=== PATIENT | female | born 1985 ===

== ENCOUNTER 2017-10-28 11:57 | Emergency (ER) | payer OTHER ==
[2017-10-28 12:37] VITALS: BMI 30.4
[2017-10-28 12:43] VITALS: RESP 20
[2017-10-28 13:15] LABS: HCG,QUALITATIVE URINE NEGATIVE (NEGATIVE)
[2017-10-28 13:24] LABS: SQUAMOUS EPITHIAL 5 /hpf (0-5); URINE BACTERIA RARE (<OCC); URINE BILIRUBIN NEGATIVE (NEGATIVE); URINE BLOOD NEGATIVE (NEGATIVE); URINE CLARITY Hazy (Clear); URINE COLOR Yellow (YELLOW); URINE GLUCOSE (UA) NORMAL (Normal); URINE LEUKOCYTE ESTERASE 2+ Leu/uL (Negative); URINE PROTEIN NEGATIVE (NEGATIVE); URINE UROBILINOGEN NORMAL mg/dL (0.2-1.0)
--- NOTE | 2017-10-28 13:38 | C.PDOC ---
History Of Present Illness 32yo female with history of left ovarian cyst, presents to the ED for evaluation of left lower abdominal pain. Patient states she feels her abdomen is inflamed as well. Patient states she has been following up with the OBGYN in the hospital clinic who instructed her she does not need surgery. Patient presents today due to increased pain. She states she has been having some burning upon urination and abnormal vaginal discharge as well. She also has a secondary complaint of headache and cough as well. Patient denies any nausea, vomiting, diarrhea, fever, chills, hematuria. She has no other medical complaints. Time Seen by Provider: 10/28/17 13:02 Chief Complaint (Nursing): Abdominal Pain History Per: Patient History/Exam Limitations: no limitations Onset/Duration Of Symptoms: Days Current Symptoms Are (Timing): Still Present Location Of Pain/Discomfort: RLQ, LLQ Quality Of Discomfort: "Pain" Associated Symptoms: Urinary Symptoms. denies: Fever, Chills, Nausea, Vomiting , Diarrhea Additional History Per: Patient Abnormal Vaginal Bleeding: No Past Medical History Reviewed: Historical Data, Nursing Documentation, Vital Signs Vital Signs: Last Vital Signs Temp 98.2 F 10/28/17 16:58 Pulse 69 10/28/17 16:58 Resp 20 10/28/17 16:58 BP 126/73 10/28/17 16:58 Pulse Ox 100 10/28/17 16:58 - Medical History PMH: No Chronic Diseases Denies: Alzheimer's Disease, Anemia, Anxiety, Arthritis, Asthma, Atrial Fibrillation, Bipolar Disorder, Bronchitis, Cardia Arrhythmia, CHF, COPD, Crohn' s Disease, Dementia, Depression, Diverticulitis, Emphysema, Fractures, Gastritis , Gall Bladder Disease, HIV, HTN, Hypercholesterolemia, Hyperthyroidism, Hypothyroidism, Kidney Stones, Migraine, Mitral Valve Prolapse, Multiple Sclerosis, Osteoporosis, Pancreatitis, Parkinson's Disease, Peripheral Edema, Pneumonia, Post Traumatic Stress Disorder, Pulmonary Embolism, Chronic Kidney Disease, Rheumatoid Arthritis, Schizophrenia, Seizures, Sickle Cell Disease, Sexually Transmitted Disease, Sleep Apnea, TIA Surgical History: No Surg Hx Denies: Appendectomy, CABG, Carotid Endarterectomy, Cholecystectomy, Coronary Stent, Pacemaker, Tonsillectomy Family History: States: No Known Family Hx - Social History Hx Alcohol Use: No Hx Substance Use: No - Immunization History Hx Tetanus Toxoid Vaccination: No Review Of Systems Except As Marked, All Systems Reviewed And Found Negative. Constitutional: Negative for: Fever, Chills Respiratory: Positive for: Cough Gastrointestinal: Positive for: Abdominal Pain. Negative for: Nausea, Vomiting , Diarrhea Genitourinary: Positive for: Dysuria, Vaginal Discharge (white). Negative for: Hematuria Neurological: Positive for: Headache Physical Exam - Physical Exam Appears: Non-toxic, No Acute Distress Skin: Normal Color, Warm, Dry Head: Atraumatic, Normacephalic Eye(s): bilateral: Normal Inspection Oral Mucosa: Moist Throat: Normal, No Erythema Neck: Normal ROM, Supple Chest: Symmetrical Cardiovascular: Rhythm Regular, No Friction Rub, No Murmur Respiratory: Normal Breath Sounds, No Wheezing Gastrointestinal/Abdominal: Normal Exam, Soft, Tenderness (left lower quadrant) , No Guarding, No Rebound Back: Normal Inspection, No CVA Tenderness Pelvic: Normal External Exam, Vaginal Discharge (white), No Cervical Motion Tenderness, No Adnexal Tenderness, Other (Exhibit Builder RN Dacia) Extremity: Normal ROM, No Pedal Edema, No Deformity, No Swelling Neurological/Psych: Oriented x3, Normal Motor Gait: Steady ED Course And Treatment O2 Sat by Pulse Oximetry: 99 (RA) Pulse Ox Interpretation: Normal Medical Decision Making Medical Decision Making: Impression: Lower abdomen pain in setting of history of ovarian cysts Plan: -- Urinalysis -- UPreg -- Pelvic exam with RN as taper operator On re-exam, the patient reports improvement of symptoms. Lungs are CTA, heart is RRR, abdomen is soft, non-tender and tolerating PO well. Ambulatory in the ED with steady gait. Follow up with the medical doctor within 1-2 days. Return if worsened Disposition - Disposition Referrals: [facility] [Outside] Disposition: HOME/ ROUTINE Disposition Time: 16:51 Condition: GOOD Additional Instructions: Follow up with the OBGYN within 1-2 days. 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 - Scribe Statement The provider has reviewed the documentation as recorded by the Scribe (Meg Naldo) Provider Attestation: All medical record entries made by the Melodieibtrip were at my direction and personally dictated by me. I have reviewed the chart and agree that the record accurately reflects my personal performance of the history, physical exam, medical decision making, and the department course for this patient. I have also personally directed, reviewed, and agree with the discharge instructions and disposition.
--- NOTE | 2017-10-28 16:26 | US ---
HISTORY: Left sided pelvic pain, ovarian cyst, ? rupture COMPARISON: None available. TECHNIQUE: Transabdominal and transvaginal FINDINGS: UTERUS: Measures 11.9 x 6.1 x 5.7 cm. Normal in size and appearance. No fibroid or other mass lesion seen. ENDOMETRIUM: Measures 10 mm in diameter. Trace endometrial fluid, nonspecific. CERVIX: No cervical abnormality identified. RIGHT OVARY: Measures 3.6 x 2.1 x 3.4 cm. No solid mass. Normal flow. LEFT OVARY: Measures 6.3 x 4.8 x 4.8 cm. No solid mass. Normal flow. Complex left ovarian cyst with internal septations, 4.2 x 4.2 x 3.9 cm. Possible resolving hemorrhagic cyst. Followup transvaginal pelvic ultrasound examination is advised in 6-8 weeks. FREE FLUID: No significant free fluid noted. OTHER FINDINGS: None. IMPRESSION: Complex left ovarian cyst, 4.2 cm. Recommend followup transvaginal pelvic ultrasound examination in 6-8 weeks. Otherwise unremarkable.
[2017-10-28 16:59] VITALS: BP 126/73; PULSE 69; TEMP 98.2
[2017-10-28 22:55] VITALS: O2SAT 99
== END 2017-10-28 17:03 | disposition home or self-care (01) ==
LOC: C.ER 11:57
DX: N83.209 Unspecified ovarian cyst, unspecified side (principal); B37.3 Candidiasis of vulva and vagina
CPT/HCPCS: 76830; 76856; 81001; 84703; 96372; 99285; J1885

== ENCOUNTER 2018-01-01 20:02 | Emergency (ER) | payer OTHER ==
[2018-01-01 20:02] VITALS: BMI 30.4
[2018-01-01 20:16] VITALS: RESP 18; TEMP 98.8
[2018-01-01] MEDS ORDERED: Sodium Chloride 0.9% 1,000 ML IV ONE (20:26)
[2018-01-01 20:37] LABS: BASO % 0.2 % (0.0-2.0); EOS # 0.1 K/uL (0.0-0.7); EOS % 1.3 % (0.0-4.0); HEMOGLOBIN 11.9 g/dL (11.0-16.0); LYMPH # 3.7 K/uL (1.0-4.3); MEAN CELL VOLUME 81.5 fL (81.0-99.0); MEAN CORPUSCULAR HEMOGLOBIN 27.9 pg (27.0-31.0); MEAN CORPUSCULAR HGB CONC 34.2 g/dL (33.0-37.0); MEAN PLATELET VOLUME 7.2 fL (7.2-11.7); MONO # 0.7 K/uL (0.0-0.8); MONO % 6.7 % (0.0-10.0); NEUT # 5.7 K/uL (1.8-7.0); NEUT % 55.8 % (50.0-75.0); NRBC % 0.1 % (0.0-2.0); RBC 4.26 Mil/uL (3.80-5.20); RED CELL DISTRIBUTION WIDTH 13.1 % (11.5-14.5); WHITE BLOOD COUNT 10.2 K/uL (4.8-10.8)
[2018-01-01 20:51] LABS: ALB/GLOB RATIO 1.2 (1.0-2.1); ALBUMIN 4.2 g/dL (3.5-5.0); ALT/SGPT 42 U/L (9-52); AST/SGOT 27 U/L (14-36); BLOOD UREA NITROGEN 12 mg/dL (7-17); CALCIUM 9.2 mg/dl (8.6-10.4); GFR AFRICAN-AMERICAN > 60; GFR NON-AFRICAN AMERICAN > 60
--- NOTE | 2018-01-01 21:15 | C.PDOC ---
History Of Present Illness 32-year-old female, PMHx includes Anxiety, comes in complaining of feeling like there is running water or electricity flowing through for the past four days. Patient states these symptoms may be attributed to her anxiety. She denies any chest pain, nausea/vomiting, fever or any other associated symptoms. No other complaints at this time. Chief Complaint (Nursing): Chest Pain History Per: Patient History/Exam Limitations: no limitations Current Symptoms Are (Timing): Still Present Severity: Moderate Past Medical History Reviewed: Historical Data, Nursing Documentation, Vital Signs Vital Signs: Last Vital Signs Temp 98.8 F 01/01/18 20:11 Pulse 94 H 01/01/18 22:38 Resp 18 01/01/18 22:38 BP 120/74 01/01/18 22:38 Pulse Ox 99 01/01/18 22:38 - Medical History PMH: Anemia Family History: States: No Known Family Hx - Social History Hx Alcohol Use: No Hx Substance Use: No - Immunization History Hx Tetanus Toxoid Vaccination: No Review Of Systems Constitutional: Negative for: Fever, Chills Cardiovascular: Negative for: Chest Pain, Palpitations Respiratory: Negative for: Cough, Shortness of Breath Gastrointestinal: Negative for: Nausea, Vomiting, Abdominal Pain Musculoskeletal: Negative for: Back Pain Skin: Negative for: Rash Neurological: Negative for: Weakness, Numbness, Headache, Dizziness Psych: Positive for: Anxiety Physical Exam - Physical Exam Appears: Non-toxic, No Acute Distress Skin: Normal Color, Warm, Dry, No Rash Head: Atraumatic, Normacephalic Eye(s): bilateral: Normal Inspection, PERRL, EOMI Nose: Normal Oral Mucosa: Moist Lips: Normal Appearing Neck: Normal ROM Chest: Symmetrical Cardiovascular: Rhythm Regular Respiratory: Normal Breath Sounds, No Accessory Muscle Use Gastrointestinal/Abdominal: Soft, No Tenderness Back: Normal Inspection Extremity: Normal ROM, No Deformity, No Swelling Neurological/Psych: Oriented x3, Normal Speech ED Course And Treatment - Laboratory Results Result Diagrams: 01/01/18 20:35 01/01/18 20:35 ECG: Interpreted By Me, Viewed By Me ECG Rhythm: Sinus Rhythm ECG Interpretation: No Acute Changes Rate From EC O2 Sat by Pulse Oximetry: 98 (RA) Pulse Ox Interpretation: Normal Disposition - Disposition Referrals: [facility] Barbi Schwartz, [Non-Staff] - Disposition: HOME/ ROUTINE Disposition Time: 21:50 Condition: GOOD Additional Instructions: AMBER VIRAMONTES, thank you for letting us take care of you today. Your provider was Cuong Sheikh DO. The emergency medical care you received today was directed at your acute symptoms. If you were prescribed any medication , please fill it and take as directed. It may take several days for your symptoms to resolve. Return to the Emergency Department if your symptoms worsen , do not improve, or if you have any other problems. Please contact your doctor or call one of the physicians/clinics you have been referred to that are listed on the Patient Visit Information form that is included in your discharge packet. Bring any paperwork you were given at discharge with you along with any medications you are taking to your follow up visit. Our treatment cannot replace ongoing medical care by a primary care provider outside of the emergency department. Thank you for allowing the [facility] team to be part of your care today. Follow up with your primary care doctor in 3-4 days for re-evaluation and further treatment. AMBER VIRAMONTES, jean paul por dejarnos atenderlo kwadwo. Simmons proveedor fue Cuong Sheikh DO. La atencin mdica de emergencia que recibi hoy estaba dirigida a elisa sntomas agudos. Si le prescribieron algn medicamento, llnelo y tome segn las indicaciones. Elisa sntomas pueden tardar varios clark en resolverse. Regrese al Departamento de Emergencia si elisa sntomas empeoran, no mejoran o si tiene algn otro problema. Comunquese con simmons mdico o llame a eli de los mdicos / clnicas a los que flores sido referido que figura en el formulario de Informacin de visita del paciente que se incluye en simmons paquete de moises. Traiga todos los documentos que recibi al momento del moises junto con los medicamentos que est tomando en simmons visita de seguimiento. Nuestro tratamiento no puede reemplazar la atencin mdica en curso por un proveedor de atencin primaria fuera del departamento de emergencia. Jean Paul por permitir que el equipo de [facility] sea parte de simmons cuidado hoy. Sri un seguimiento con simmons mdico de atencin primaria en 3-4 clark para clementine nueva evaluacin y tratamiento adicional. Prescriptions: ALPRAZolam HALF TABLET [Xanax HALF TABLET] 0.125 mg PO Q8 PRN #10 tab PRN Reason: Anxiety Instructions: Generalized Anxiety Disorder (DC) Forms: Gen Discharge Inst Mohawk, [employer] (Mohawk) Print Language: PAKISTANI - Clinical Impression Clinical Impression: Anxiety - Scribe Statement The provider has reviewed the documentation as recorded by the Scribe (Jignesh Travis) All medical record entries made by the Scribe were at my direction and personally dictated by me. I have reviewed the chart and agree that the record accurately reflects my personal performance of the history, physical exam, medical decision making, and the department course for this patient. I have also personally directed, reviewed, and agree with the discharge instructions and disposition.
[2018-01-01 21:21] LABS: T3 1.92 nmol/L (1.49-2.60)
[2018-01-01 22:40] VITALS: BP 120/74; PULSE 94
[2018-01-02 00:43] VITALS: O2SAT 98
--- NOTE | 2018-01-02 11:52 | RAD ---
PROCEDURE: CHEST RADIOGRAPH, 1 VIEW HISTORY: chest pain COMPARISON: None available. FINDINGS: LUNGS: Clear. PLEURA: No pneumothorax or pleural fluid seen. CARDIOVASCULAR: Normal. OSSEOUS STRUCTURES: No significant abnormalities. VISUALIZED UPPER ABDOMEN: Normal. OTHER FINDINGS: None. IMPRESSION: No active disease.
--- NOTE | 2018-01-04 18:16 | CARD ---
APPROVED REPORT EKG Measurement Heart [id number] <Conclusion> Normal sinus rhythm Normal ECG
== END 2018-01-01 22:38 | disposition home or self-care (01) ==
LOC: C.ER 20:02
DX: F41.9 Anxiety disorder, unspecified (principal)
CPT/HCPCS: 71045; 80053; 84443; 84480; 84484; 85025; 93005; 99284; J7030

== ENCOUNTER 2018-06-17 11:12 | Emergency (ER) | payer OTHER ==
[2018-06-17 11:12] VITALS: BMI 30.4
[2018-06-17] MEDS ORDERED: Sodium Chloride 0.9% 1,000 ML IV ONE (12:29)
--- NOTE | 2018-06-17 12:31 | C.PDOC ---
History Of Present Illness 33 y/o female with PMH ovarian cysts presents to the ED complaining of intermittent lower abdominal pain. Pain is achey and described as menstrual cramping. She does not have regular gynecology follow-up. States last week she had several episodes of vaginal bleeding, which she attributes to her period being 1 week early. States she occasionally has vaginal discomfort with white discharge. Patient sexually active with 3 partners. Otherwise she denies any vomiting, diarrhea, chest pain, SOB, fever, chills, dysuria, or any other a ssociated symptoms. Time Seen by Provider: 06/17/18 11:25 Chief Complaint (Nursing): Abdominal Pain History Per: Body Technician/Painter (Kat Martinez science interpreter, #[id number]) History/Exam Limitations: no limitations Onset/Duration Of Symptoms: Intermittent Episodes Current Symptoms Are (Timing): Still Present Location Of Pain/Discomfort: LLQ, Suprapubic Past Medical History Reviewed: Historical Data, Nursing Documentation, Vital Signs Vital Signs: Last Vital Signs Temp 98.6 F 06/17/18 11:19 Pulse 75 06/17/18 11:19 Resp 14 06/17/18 11:19 BP 100/71 06/17/18 11:19 Pulse Ox 99 06/17/18 11:19 - Medical History PMH: Anemia Denies: Alzheimer's Disease, Anxiety, Arthritis, Asthma, Atrial Fibrillation, Bipolar Disorder, Bronchitis, Cardia Arrhythmia, CHF, COPD, Crohn's Disease, Dementia, Depression, Diverticulitis, Emphysema, Fractures, Gastritis, Gall Bladder Disease, HIV, HTN, Hypercholesterolemia, Hyperthyroidism, Hypothyroidism, Kidney Stones, Migraine, Mitral Valve Prolapse, Multiple Sclerosis, Osteoporosis, Pancreatitis, Parkinson's Disease, Peripheral Edema, Pneumonia, Post Traumatic Stress Disorder, Pulmonary Embolism, Chronic Kidney Disease, Rheumatoid Arthritis, Schizophrenia, Seizures, Sickle Cell Disease, Sexually Transmitted Disease, Sleep Apnea, TIA Surgical History: Denies: Appendectomy, CABG, Carotid Endarterectomy, Cholecystectomy, Coronary Stent, Pacemaker, Tonsillectomy Family History: States: No Known Family Hx - Social History Hx Alcohol Use: No Hx Substance Use: No - Immunization History Hx Tetanus Toxoid Vaccination: No Hx Influenza Vaccination: No Hx Pneumococcal Vaccination: No Review Of Systems Except As Marked, All Systems Reviewed And Found Negative. Constitutional: Negative for: Fever, Chills Eyes: Negative for: Vision Change Cardiovascular: Negative for: Chest Pain, Palpitations, Light Headedness Respiratory: Negative for: Cough, Shortness of Breath Gastrointestinal: Positive for: Abdominal Pain (suprapubic, LLQ). Negative for: Vomiting, Diarrhea, Hematochezia Genitourinary: Positive for: Vaginal Discharge, Vaginal Bleeding. Negative for: Dysuria, Frequency, Hematuria Musculoskeletal: Negative for: Back Pain Skin: Negative for: Rash Neurological: Negative for: Weakness, Numbness, Headache, Dizziness Physical Exam - Physical Exam Appears: Well, Non-toxic, No Acute Distress Skin: Normal Color, Warm, Dry Head: Atraumatic, Normacephalic Eye(s): bilateral: Normal Inspection, PERRL, EOMI Ear(s): Bilateral: Normal Nose: Normal Oral Mucosa: Moist Neck: Normal ROM Chest: Symmetrical Cardiovascular: Rhythm Regular, No Murmur Respiratory: Normal Breath Sounds, No Rales, No Rhonchi, No Wheezing Gastrointestinal/Abdominal: Bowel Sounds (normoactive), Soft, Tenderness (very mild across the suprapubic region, and LLQ), No Mass, No Distention, No Guarding, No Rebound, No Hernia, No Ascites, No Other (no RLQ tenderness) Back: Normal Inspection, No CVA Tenderness, No Vertebral Tenderness, No Paraspinal Tenderness Pelvic: Normal External Exam, Normal Bimanual Exam, No Vaginal Bleeding, Vaginal Discharge (white, creamy), No Cervical Motion Tenderness, No Adnexal Tenderness, No Enlarged Uterus, No Tender Uterus Extremity: Normal ROM, Capillary Refill (<2s) Extremity: Bilateral: Atraumatic, No Pedal Edema, Normal Color And Temperature, Normal ROM Pulses: Left Radial: Normal, Right Radial: Normal, Left Dorsalis Pedis: Normal, Right Dorsalis Pedis: Normal Neurological/Psych: Oriented x3, Normal Speech, Normal Cognition, Normal Motor, Normal Sensation Gait: Steady ED Course And Treatment - Laboratory Results Result Diagrams: 06/17/18 12:54 06/17/18 12:54 Lab Interpretation: Normal Urine POC: Negative O2 Sat by Pulse Oximetry: 99 (RA) Pulse Ox Interpretation: Normal Medical Decision Making Medical Decision Making: Impression: Suprapubic pain, hx of ovarian cyst Initial Plan: --CMP --Lipase --CBC --PTT/PT --UA --Urine culture --IV fluids --Pending Pelvic US 13:30 Patient tolerating PO, resting comfortably in stretcher. Denies pain. 14:30 Patient wishes to be tested for GC/Chlamydia. Will treat here in ED. 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 Diagnostic testing results and plan of care discussed with patient, and strict instructions given regarding prescriptions, importance of follow up, and signs to return to Emergency Department, to include worsening abdominal pain, fever, chills, urinary symptoms, back pain, or any other new/worsening symptoms. Patient verbalizes understanding of discussion. Patient A&Ox3, ambulating with steady gait, stable for discharge home. Disposition - Disposition Referrals: [facility] [Outside] [facility] [Outside] Naomi Weiner MD [Staff Provider] - Disposition: HOME/ ROUTINE Disposition Time: 15:45 Condition: IMPROVED Additional Instructions: [place] ibuprofeno cada 8 horas segn sea necesario para el dolor. 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 - Scribe Statement The provider has reviewed the documentation as recorded by the Melodieibtrip Meek All medical record entries made by the Scribe were at my direction and personally dictated by me. I have reviewed the chart and agree that the record accurately reflects my personal performance of the history, physical exam, medical decision making, and the department course for this patient. I have also personally directed, reviewed, and agree with the discharge instructions and disposition.
[2018-06-17 13:00] LABS: BASO % 0.4 % (0.0-2.0); EOS # 0.1 K/uL (0.0-0.7); EOS % 1.4 % (0.0-4.0); HEMOGLOBIN 12.3 g/dL (11.0-16.0); LYMPH # 2.4 K/uL (1.0-4.3); LYMPH % 28.5 % (20.0-40.0); MEAN CORPUSCULAR HEMOGLOBIN 28.7 pg (27.0-31.0); MEAN CORPUSCULAR HGB CONC 34.1 g/dL (33.0-37.0); MEAN PLATELET VOLUME 7.2 fL (7.2-11.7); MONO # 0.6 K/uL (0.0-0.8); MONO % 7.4 % (0.0-10.0); NEUT # 5.2 K/uL (1.8-7.0); NEUT % 62.3 % (50.0-75.0); RBC 4.3 Mil/uL (3.80-5.20); RED CELL DISTRIBUTION WIDTH 13.8 % (11.5-14.5); WHITE BLOOD COUNT 8.3 K/uL (4.8-10.8)
[2018-06-17 13:02] LABS: MEAN CELL VOLUME 84.2 fL (81.0-99.0)
[2018-06-17 13:08] LABS: INR 1.1; PROTHROMBIN TIME 12.1 SECONDS (9.7-12.2)
[2018-06-17 13:11] LABS: ALB/GLOB RATIO 1.2 (1.0-2.1); ALBUMIN 4.4 g/dL (3.5-5.0); ALT/SGPT 36 U/L (9-52); AST/SGOT 25 U/L (14-36); BLOOD UREA NITROGEN 15 mg/dL (7-17); CALCIUM 9.2 mg/dl (8.6-10.4); GFR NON-AFRICAN AMERICAN > 60; LIPASE 59 U/L (23-300)
[2018-06-17 13:17] LABS: SQUAMOUS EPITHIAL 3 /hpf (0-5); URINE BACTERIA RARE (<OCC); URINE BILIRUBIN NEGATIVE (NEGATIVE); URINE BLOOD NEGATIVE (NEGATIVE); URINE CLARITY Hazy (Clear); URINE COLOR Yellow (YELLOW); URINE GLUCOSE (UA) NORMAL (Normal); URINE LEUKOCYTE ESTERASE NEG Leu/uL (Negative); URINE PROTEIN 1+ mg/dL (NEGATIVE); URINE UROBILINOGEN NORMAL mg/dL (0.2-1.0)
--- NOTE | 2018-06-17 14:45 | US ---
Date of service: 06/17/2018 HISTORY: abd pain COMPARISON: Pelvic ultrasound performed 10/28/17 TECHNIQUE: Real-time transabdominal pelvic ultrasound was performed. In addition a transvaginal pelvic ultrasound was necessary to better depict pelvic anatomy. FINDINGS: UTERUS: Measures 10.7 x 5.5 x 6.5 cm. Anteverted. Heterogeneous uterine echotexture. ENDOMETRIUM: Measures 0.6 mm in diameter. CERVIX: No cervical abnormality identified. RIGHT OVARY: Measures 4.1 x 2.1 x 2.9 cm. Blood flow is demonstrated. LEFT OVARY: Measures 4.0 x 3.3 x 3.8 cm. Blood flow is demonstrated. 1.9 x 1.9 x 1.9 cm cyst containing internal echoes. FREE FLUID: No significant free fluid noted. OTHER FINDINGS: None. IMPRESSION: Mildly heterogeneous uterine echotexture. 1.9 cm left ovarian cyst appears complex with internal echoes. Recommend 6 week ultrasound follow-up.
[2018-06-17 15:06] VITALS: BP 105/65; PULSE 69; RESP 16; TEMP 98.5
[2018-06-17] MEDS ORDERED: cefTRIAXone (Rocephin) 250 mg Inj IM STA (15:23)
[2018-06-17] MEDS ORDERED: Azithromycin 100 mg/5 ml Susp (15 ml) PO STA (15:23)
[2018-06-18 14:01] VITALS: O2SAT 99
== END 2018-06-17 15:58 | disposition home or self-care (01) ==
LOC: C.ER 11:12
DX: N83.209 Unspecified ovarian cyst, unspecified side (principal)
CPT/HCPCS: 76830; 76856; 80053; 81001; 83690; 85025; 85610; 85730; 87086; 87491; 87591; 96360; 96372; 99284; J0696; J7030